=== PATIENT | female | born 1975 | race Caucasian/White ===

== ENCOUNTER 2019-01-28 00:09 | Emergency (ER) | payer MEDICAID ==
[~2019-01-28] VITALS: Ht 167.6 cm; Wt 50.0 kg
[2019-01-28] MEDS ORDERED: NALOXONE 1 MG/ML, 2ML ONE (00:33)
--- NOTE | 2019-01-28 00:42 | NUR ---
PT UNCOOPERATIVE W/ ALL OF ASSESSMENT AND TRIAGE AND ASSESSMENT. PT NOT WANTING TO HAVE ANY VITALS EQUIPMENT ATTACHED. PT STATES FIRST TIME HEROIN TODAY AND FOUND BY FAMILY APNEIC AND CYANOTIC. CPR INITIATED AND RESCUE BREATHING BY EMERGENCY PERSONNEL. PT GIVEN 1 MG NARCAN AND NORMAL WOB BREATHING AND CONSCIOUSNESS OBTAINED. PT PRESENTS TO ED W/ PERIODS OF APNEA W/ SPO2 DIPPING INTO 70'S AND END TIDAL AT 22. MD NOTIFIED. PT STILL APPEARS ANXIOUS IN ROOM. THIS RN AT BEDSIDE.
[2019-01-28 00:43] LABS: BASOPHILS # (AUTO) 0.11 x10^3/uL (0-0.1); BASOPHILS % (AUTO) 1 % (0-1); EOSINOPHILS # (AUTO) 0.14 x10^3/uL (0-0.4); EOSINOPHILS % (AUTO) 1 % (1-7); LYMPHOCYTES # (AUTO) 2.29 x10^3/uL (1-3.4); LYMPHOCYTES % (AUTO) 17 % (22-44); MD NO; MEAN CORPUSCULAR HEMOGLOBIN 34.2 pg (27.0-34.8); MEAN CORPUSCULAR HGB CONC 33.7 g/dL (32.4-35.8); MEAN CORPUSCULAR VOLUME 101.6 fL (80-100); MEAN PLATELET VOLUME 6.8 fL (7.4-10.4); MONOCYTES # (AUTO) 1.02 x10^3/uL (0.2-0.8); MONOCYTES % (AUTO) 8 % (2-9); NEUTROPHILS # (AUTO) 9.93 x10^3/uL (1.8-6.8); NEUTROPHILS % (AUTO) 74 % (42-75); PLATELET COUNT 427 x10^3/uL (130-400); RED BLOOD COUNT 4.37 x10^6/uL (3.82-5.3); RED CELL DISTRIBUTION WIDTH 13.5 % (9.6-15.2)
--- NOTE | 2019-01-28 00:51 | NUR ---
1 MG NARCAN GIVEN PER JAN.
[2019-01-28] MEDS ORDERED: NALOXONE 1 MG/ML, 2ML IVPush ONE (01:00)
[2019-01-28 01:04] LABS: ALBUMIN 3.5 g/dL (3.4-5.0); ANION GAP 4 mmol/L (5-15); CALCIUM 8.4 mg/dL (8.5-10.1); CHLORIDE 109 mmol/L (98-107); CREATININE 0.88 mg/dL (0.55-1.02)
[2019-01-28 01:08] LABS: ACETAMINOPHEN < 2 mcg/mL (10-30)
--- NOTE | 2019-01-28 01:24 | NUR ---
PT APPEARS MORE ALERT AND NO PERIODS OF SPO2 DROPS NOTED RECENTLY. MD AWARE. CALL LIGHT WITHIN REACH. THIS RN TO CONTINUE TO MONITOR.
--- NOTE | 2019-01-28 01:43 | NUR ---
REPORT TO BRUCE SANTIZO.
--- NOTE | 2019-01-28 02:25 | NUR ---
PT RESTING. VSS. PT REQUESTING TO GO HOME. RN ADVISED PT THAT SHE STILL NEEDS TO BE MONITORED. PT MAINTAINING O2 SATS ON RA. PT FALLING ASLEEP WHILE TALKING TO RN. CALL LIGHT IN REACH
--- NOTE | 2019-01-28 03:12 | NUR ---
PT GIVEN WATER. VSS. PT STILL DROWSY BUT ANSWERING QUESTIONS. CALL LIGHT IN REACH
[2019-01-28] MEDS ORDERED: ONDANSETRON ODT 4 MG ONE (03:29)
[2019-01-28] MEDS ORDERED: ONDANSETRON ODT 4 MG PO ONE (04:00)
--- NOTE | 2019-01-28 04:26 | NUR ---
PT STILL VERY DROWSY. VSS. NAUSEA IMPROVED AFTER ZOFRAN GIVEN. CALL LIGHT IN REACH
[2019-01-28 05:00] VITALS: BP 128/72
--- NOTE | 2019-01-28 05:26 | NUR ---
PT SLEEPING. PT AROUSES TO VOICE BUT QUICKLY FALLS BACK TO SLEEP. VSS. CALL LIGHT IN REACH.
--- NOTE | 2019-01-28 06:22 | NUR ---
Patient given discharge instructions and they have confirmed that they understand the instructions. Patient ambulatory with steady gait.Pt given cab voucher for safe discharge
== END 2019-01-28 06:28 | disposition home or self-care (01) ==
LOC: ED 05:46
DX: T40.1X1A Poisoning by heroin, accidental (unintentional), initial encounter (principal); T43.621A Poisoning by amphetamines, accidental (unintentional), initial encounter; R40.20 Unspecified coma; Y92.89 Other specified places as the place of occurrence of the external cause
CPT/HCPCS: 36415; 71045; 80048; 80307; 80329; 82040; 84703; 85025; 93005; 96374; 99291; J2310; Q0162; G0480

== ENCOUNTER 2021-04-10 07:24 | Emergency (ER) | payer MEDICAID ==
[~2021-04-10] VITALS: Ht 154.9 cm; Wt 65.0 kg
[2021-04-10 07:27] VITALS: BP 117/78
[2021-04-10] MEDS ORDERED: LIDOCAINE 2%, 20ML SQ ONE (08:00)
--- NOTE | 2021-04-10 08:30 | NUR ---
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
--- NOTE | 2021-04-10 08:34 | NUR ---
LEFT ARM PIT ABSCESS. PT POSTIONED TO COMFORT. ATTACHED TO MONITORS. ANTONIETA. NAIF.
--- NOTE | 2021-04-10 08:47 | NUR ---
REPORT TO DEXTER SANTIZO. NATALEE HARVEY TO BEDSIDE FOR I&D.
[2021-04-10] MEDS ORDERED: HYDROcodone/APAP 5/325 TABLET PO ONE (09:00)
--- NOTE | 2021-04-10 09:05 | NUR ---
SBAR RPT REC'D AND PT CARE ASSUMED. ER PA AT BEDSIDE AND L&D COMPLETED. PT WITH NEW C/O BURNING WITH URINATION. PT OOB AND AMB TO BATHROOM, URINE SAMPLE COLLECTED AND SENT TO LAB. PT MED NOTED FOR PAIN
[2021-04-10] MEDS ORDERED: HYDROcodone/APAP 5/325 TABLET ONE (09:08)
[2021-04-10 09:19] LABS: MICROSCOPIC INDICATED
--- NOTE | 2021-04-10 09:55 | NUR ---
Patient given discharge instructions and they have confirmed that they understand the instructions. Patient ambulatory with steady gait. Pt asked for something to cover site, she didn't want gauze. She said she wanted band aid.
--- NOTE | 2021-04-10 10:00 | NUR ---
Patient/Caregiver given discharge instructions and they have confirmed that they understand the instructions. Patient ambulatory with steady gait.
== END 2021-04-10 10:01 | disposition home or self-care (01) ==
LOC: ED 09:20
DX: L02.412 Cutaneous abscess of left axilla (principal); N30.00 Acute cystitis without hematuria; F17.210 Nicotine dependence, cigarettes, uncomplicated
CPT/HCPCS: 10060; 81001; 99283; J3490